=== PATIENT | female | born 1980 | race Caucasian/White ===

== ENCOUNTER 2021-06-01 11:55 | Inpatient (IN) | payer OTHER ==
[~2021-06-01] VITALS: Ht 172.7 cm; Wt 136.1 kg
[2021-06-01 17:32] LABS: HEMOGLOBIN 11.6 gm/dl (12.3-15.3); RED BLOOD COUNT 4.85 M/UL (4.00-5.10)
[2021-06-01 18:03] LABS: BUN/CREATININE RATIO 21 (0-10)
[2021-06-01] MEDS ORDERED: CLONIDINE HCL0.1 MG PO (18:27)
[2021-06-01] MEDS ORDERED: FUROSEMIDE20 MG PO (18:28)
[2021-06-01] MEDS ORDERED: AMLODIPINE BESY10 MG PO (18:28)
[2021-06-01] MEDS ORDERED: OMEPRAZOLE40 MG PO (18:28)
[2021-06-01] MEDS ORDERED: GABAPENTIN100 MG PO (18:29)
[2021-06-01] MEDS ORDERED: CELECOXIB200 MG PO (18:29)
[2021-06-01] MEDS ORDERED: HYDROCODON-ACE1 EAC4 PO (18:29)
[2021-06-01] MEDS ORDERED: METFORMIN HCL500 MG PO (18:30)
[2021-06-01] MEDS ORDERED: LISINOPRIL40 MG PO (18:30)
[2021-06-02 03:30] LABS: HEMOGLOBIN 11.6 gm/dl (12.3-15.3); RED BLOOD COUNT 4.88 M/UL (4.00-5.10); WHITE BLOOD COUNT 16.9 K/UL (4.5-11.0)
[2021-06-02 04:14] LABS: BUN/CREATININE RATIO 18 (0-10)
--- NOTE | 2021-06-02 13:54 | NUR ---
CERTIFIED MEDICAL TECHNICIAN ASSISTANT CALLED REPORT AND TOLD ME THAT WAS BEING SENT TO [facility] FOR A STENT PLACEMENT BETWEEN THE LAD AND CURMFLEX DUE TO A 99% BLOCKAGE. PT WAS ASSESSED ONCE ARRIVED BACK ON THE FLOOR WITH A 16F ART LINE IN PLACE WITH A PRESSURE BAG ATTACTED. THERE WAS NO BLEEDING OR HEMATOMA NOTED. PT WAS FLOWN OUT BY [facility] AT 1320.PT WAS AWARE OF WHAT WAS GOING ON ALONG WITH WHAT ALL HAD TO BE DONE ONCE SHE GOT THERE. NON-EMTALA WAS DONE AND REPORT WAS GIVEN TO [facility] AT 1216. PTS LAST VITALS BEFORE LEAVING WAS 115/64 HR 70 RR 16 TEMP 98.4. [facility] WAS NOTIFIED OF ALL CONDITIONS AND IV SITES. HEMODYNAMIC MONITORING WAS APPLIED AND HEPARIN WAS CONTINUED. PT LEFT WITH A 20G IN THE LEFT ANTERIOR
== END 2021-06-02 13:23 | disposition short-term general hospital (02) | DRG 281 ==
LOC: PROG CARE 16:34
PROVIDERS: ADMIT Internal Medicine
PROC: B24BZZ4 Ultrasonography of Heart with Aorta, Transesophageal (ICD-10-PCS; principal; 2021-06-02)
PROC: 4A023N7 Measurement of Cardiac Sampling and Pressure, Left Heart, Percutaneous Approach (ICD-10-PCS; 2021-06-02)
PROC: B2111ZZ Fluoroscopy of Multiple Coronary Arteries using Low Osmolar Contrast (ICD-10-PCS; 2021-06-02)
DX: I21.4 Non-ST elevation (NSTEMI) myocardial infarction (principal); Z68.42 Body mass index [BMI] 45.0-49.9, adult; Z20.822 Contact with and (suspected) exposure to COVID-19; I45.10 Unspecified right bundle-branch block; E66.01 Morbid (severe) obesity due to excess calories; E11.9 Type 2 diabetes mellitus without complications; G89.29 Other chronic pain; K21.9 Gastro-esophageal reflux disease without esophagitis; F17.210 Nicotine dependence, cigarettes, uncomplicated; I10 Essential (primary) hypertension; Z79.82 Long term (current) use of aspirin
CPT/HCPCS: ECHO; 36415; 71046; 80053; 80061; 80307; 82550; 82553; 82962; 83036; 83735; 83880; 84100; 84484; 84703; 85025; 85610; 85730; 93005; 93306; 99152; 99153; C1769; C1887; C1894; J1644; J2250; J3010; J7030; J7040; Q9967